=== PATIENT | female | born 1995 | race Caucasian/White ===

== ENCOUNTER 2016-09-25 16:22 | Inpatient (IN) | payer BC ==
[~2016-09-25] VITALS: Ht 160 cm; Wt 100.7 kg
[2016-09-25] MEDS ORDERED: TERBUTALINE SULFATE 1 MG/ML VIAL ONE (19:00)
[2016-09-25] MEDS ORDERED: LR 1,000 ML IV ONE (19:20)
[2016-09-25] MEDS ORDERED: LR 1,000 ML IV SCH (19:20)
[2016-09-25] MEDS ORDERED: NALBUPHINE HCL 10 MG/ML AMP IVP PRN (19:30)
[2016-09-25 19:55] LABS: BASOPHILS % (AUTO) 0.2 % (0.0-2.0); EOSINOPHILS % (AUTO) 0.3 % (0.0-4.0); HEMATOCRIT 34.5 % (36-48); HEMOGLOBIN 11.1 g/dL (12.0-16.0); LYMPHOCYTES # (AUTO) 1.5 K/uL (1.0-5.5); LYMPHOCYTES % (AUTO) 15.2 % (20.5-51.5); MEAN CORPUSCULAR HEMOGLOBIN 28 pg (27-31); MEAN CORPUSCULAR HGB CONC 32 % (32-36); MEAN CORPUSCULAR VOLUME 86 fL (79.0-98.0); MONOCYTES # (AUTO) 0.6 K/uL (0.0-1.0); NEUTROPHILS % (AUTO) 78.3 % (40.0-70.0); PLATELET COUNT (AUTO) 252 K/uL (130-430); RED BLOOD CELL COUNT(AUTO) 4.02 MIL/uL (4.2-6.2); RED CELL DISTRIBUTION WIDTH 13.8 % (9.0-15.0); WHITE BLOOD COUNT (AUTO) 10.1 K/uL (4.8-10.8)
[2016-09-25 21:04] VITALS: BP_SYST 134
[2016-09-25] MEDS ORDERED: fentaNYL CITRATE/PF 100 MCG/2 ML AMP EP ONE (21:18)
[2016-09-25] MEDS ORDERED: FENT2mCg/mL-ROPIVA0.2%/NS EPID 150 ML EP SCH (21:18)
[2016-09-25] MEDS ORDERED: FENT2mCg/mL-ROPIVA0.2%/NS EPID 150 ML EP ONE (21:18)
[2016-09-25] MEDS ORDERED: fentaNYL CITRATE/PF 100 MCG/2 ML AMP ONE (21:18)
[2016-09-25] MEDS ORDERED: OXYTOCIN/NORMAL SALINE 1,000 ML IV SCH (21:30)
[2016-09-26] MEDS ORDERED: TERBUTALINE SULFATE 2.5 MG TABLET ONE (04:59)
[2016-09-26] MEDS ORDERED: TERBUTALINE SULFATE 2.5 MG TABLET PO ONE (05:00)
[2016-09-26] MEDS ORDERED: FENT2mCg/mL-ROPIVA0.2%/NS EPID 150 ML EP ONE (05:28)
[2016-09-26] MEDS ORDERED: TERBUTALINE SULFATE 1 MG/ML VIAL SUBCUT ONE ×2 (06:30→07:00)
[2016-09-26] MEDS ORDERED: OXYTOCIN/NORMAL SALINE 1,000 ML IV ONE (13:05)
[2016-09-26] MEDS ORDERED: SENNOSIDES/DOCUSATE SODIUM 1 TAB TABLET(SENOKOT-S) PO PRN (13:15)
[2016-09-26] MEDS ORDERED: METHYLERGONOVINE MALEATE 0.2 MG TABLET PO PRN (13:15)
[2016-09-26] MEDS ORDERED: GLYCERIN/WITCH HAZEL (TUCKS PADS) TP PRN (13:15)
[2016-09-26] MEDS ORDERED: ACETAMINOPHEN 325 MG TABLET PO PRN (13:15)
[2016-09-26] MEDS ORDERED: DERMOPLAST SPRAY TP PRN (13:15)
[2016-09-26] MEDS ORDERED: LANOLIN 7 GM OINT. TP PRN (13:15)
[2016-09-26] MEDS ORDERED: OXYCODONE/ACETAMINOPHEN 5-325 TABLET PO PRN (13:15)
[2016-09-26] MEDS ORDERED: ANUSOL 1 EA SUPP.RECT (PREPARATION H) RC PRN (13:15)
[2016-09-26] MEDS ORDERED: HYDROCORTISONE 0.5%, 28.35 GM TOPICAL CREAM TP PRN (13:15)
[2016-09-26] MEDS ORDERED: DOCUSATE SODIUM 100 MG CAPSULE PO PRN (13:15)
[2016-09-26] MEDS: OXYCODONE/ACETAMINOPHEN 5-325 TABLET PO PRN ×2 (15:36→23:38)
[2016-09-26] MEDS: IBUPROFEN 600 MG TABLET PO SCH ×2 (18:18→23:29)
[2016-09-26] MEDS ORDERED: TEMAZEPAM 15 MG CAPSULE PO PRN (21:00)
[2016-09-27 06:29] LABS: HEMATOCRIT 27.8 % (36-48); HEMOGLOBIN 8.5 g/dL (12.0-16.0)
[2016-09-27] MEDS: IBUPROFEN 600 MG TABLET PO SCH ×2 (06:49→12:10)
== END 2016-09-27 14:10 | disposition home or self-care (01) | DRG 775 ==
LOC: SPU 16:37
PROVIDERS: ADMIT Specialist; ATTEND Specialist
PROC: 3E0S3CZ (ICD-10-PCS; 2016-09-25)
PROC: 00HU33Z Insertion of Infusion Device into Spinal Canal, Percutaneous Approach (ICD-10-PCS; 2016-09-25)
PROC: 10E0XZZ Delivery of Products of Conception, External Approach (ICD-10-PCS; principal; 2016-09-26)
PROC: 0KQM0ZZ Repair Perineum Muscle, Open Approach (ICD-10-PCS; 2016-09-26)
PROC: 4A0HXCZ Measurement of Products of Conception, Cardiac Rate, External Approach (ICD-10-PCS; 2016-09-26)
DX: O99.214 Obesity complicating childbirth (principal); O70.1 Second degree perineal laceration during delivery; Z37.0 Single live birth; Z3A.39 39 weeks gestation of pregnancy
CPT/HCPCS: 36415; 81002-TC; 85018-TC; 85025; 86592; 86886; 86900; 86901; J2590; J3010; J3105; J7120